=== PATIENT | female | born 1980 ===

== ENCOUNTER 2020-03-20 16:20 | Emergency (ER) | payer SELFPAY ==
[2020-03-20] MEDS ORDERED: MAGNESIUM SULFATE 2 GM/50 ML BAG IV ONE ×2 (16:34→20:34)
[2020-03-20] MEDS ORDERED: dexAMETHasone 20 MG/5 ML VIAL IV ONE (16:34)
[2020-03-20] MEDS ORDERED: SODIUM CHLORIDE 0.9% 1000 ML 1,000 ML IV ONE (16:34)
[2020-03-20] MEDS ORDERED: IPRATROPIUM 0.02% NEBU 2.5 ML IH ONE (16:34)
[2020-03-20] MEDS ORDERED: ALBUTEROL 2.5 MG/3 ML NEBU IH ONE (16:34)
--- NOTE | 2020-03-20 16:37 | Event Note ---
ED Screening Note Date of service: 03/20/20 Time: 16:36 ED Screening Note: 39-year-old -[place] female presents to the emergency room for shortness of breath and cough for the last 2 months but has gotten worse. Patient states that she has been trying to manage it at home with her nebulizer and inhaler but has no improvement. Patient denies any fever chills no nausea no vomiting but does report recent travel. Patient ports that she has had her tubes tied. This initial assessment/diagnostic orders/clinical plan/treatment(s) is/are subject to change based on patients health status, clinical progression and re- assessment by fellow clinical providers in the ED. Further treatment and workup at subsequent clinical providers discretion. Patient/guardian urged not to elope from the ED as their condition may be serious if not clinically assessed and managed. Initial orders include:
--- NOTE | 2020-03-20 16:47 | Emergency Department Report ---
ED Asthma HPI - General Chief Complaint: Adult Asthma Stated Complaint: SOB Time Seen by Provider: 03/20/20 16:41 Source: patient Mode of arrival: Ambulatory Limitations: No Limitations - History of Present Illness Initial Comments: Patient is 39 years old female with history of asthma. Patient presented to the ER complaining of shortness of breath, wheezing for the last few days. Patient stated that she has been using her albuterol inhaler but no improvement. Patient denied any fever, chills, runny nose or congestion. Patient also denied any chest pain. MD Complaint: "asthma attack", shortness of breath, wheezing -: days(s) Asthma History: childhood onset Severity: moderate Context: none known Treatments Prior to Arrival: inhaled bronchodilator - Related Data Current Asthma Therapy: inhaled bronchodilator Previous Rx's Medication Instructions Recorded Last Taken Type Azithromycin [Zithromax Z-JAMES] 250 mg PO DAILY 1 Days tab 03/20/20 Unknown Rx Prednisone [predniSONE 10 mg 10 mg PO .TAPER #1 tab.ds.pk 03/20/20 Unknown Rx (6-Day Pack, 21 Tabs)] Allergies Allergy/AdvReac Type Severity Reaction Status Date / Time Penicillins Allergy Rash Verified 03/20/20 16:22 ED Review of Systems ROS: Stated complaint: SOB Other details as noted in HPI Comment: All other systems reviewed and negative Constitutional: denies: chills, fever Respiratory: cough, shortness of breath, wheezing. denies: orthopnea, SOB with exertion, SOB at rest Cardiovascular: denies: chest pain, palpitations Gastrointestinal: denies: abdominal pain, nausea, vomiting Musculoskeletal: denies: back pain Neurological: denies: headache, weakness ED Past Medical Hx - Past Medical History Previous Medical History?: Yes Hx Asthma: Yes - Surgical History Past Surgical History?: Yes Additional Surgical History: x 3, Umbilical hernia repair - Social History Smoking Status: Never Smoker Substance Use Type: Alcohol - Medications Home Medications: Home Medications Medication Instructions Recorded Confirmed Last Taken Type Azithromycin [Zithromax Z-JAMES] 250 mg PO DAILY 1 Days tab 03/20/20 Unknown Rx Prednisone [predniSONE 10 mg 10 mg PO .TAPER #1 tab.ds.pk 03/20/20 Unknown Rx (6-Day Pack, 21 Tabs)] ED Physical Exam - General Limitations: No Limitations General appearance: alert, in no apparent distress - Head Head exam: Present: atraumatic, normocephalic, normal inspection - Eye Eye exam: Present: normal appearance - ENT ENT exam: Present: normal exam, normal orophraynx, mucous membranes moist - Neck Neck exam: Present: normal inspection, full ROM. Absent: tenderness, meningismus, lymphadenopathy, thyromegaly - Respiratory Respiratory exam: Present: wheezes, rales, prolonged expiratory. Absent: respiratory distress, rhonchi, accessory muscle use, decreased breath sounds - Cardiovascular Cardiovascular Exam: Present: regular rate, normal rhythm, normal heart sounds - GI/Abdominal GI/Abdominal exam: Present: soft, normal bowel sounds. Absent: distended, tenderness, guarding, rebound, rigid, mass, bruit, pulsatile mass, hernia - Extremities Exam Extremities exam: Present: normal inspection, full ROM, normal capillary refill. Absent: tenderness, pedal edema, calf tenderness - Back Exam Back exam: Present: normal inspection, full ROM. Absent: CVA tenderness (R), CVA tenderness (L) - Neurological Exam Neurological exam: Present: alert, oriented X3, CN II-XII intact, normal gait, reflexes normal - Psychiatric Psychiatric exam: Present: normal mood - Skin Skin exam: Present: warm, intact, normal color ED Course Vital Signs 03/20/20 16:25 Temperature 98.2 F Pulse Rate 98 H Respiratory 20 Rate Blood Pressure 143/87 O2 Sat by Pulse 95 Oximetry ED Medical Decision Making - Lab Data Result diagrams: 03/20/20 16:59 03/20/20 16:59 - Radiology Data Radiology results: report reviewed - Medical Decision Making Patient is 39 years old female with history of asthma. Patient presented to the ER complaining of shortness of breath, wheezing for the last few days. Patient stated that she has been using her albuterol inhaler but no improvement. Patient denied any fever, chills, runny nose or congestion. Patient also denied any chest pain. Patient received albuterol, Atrovent,'s Decadron and magnesium. Patient stated that she is feeling much better. Chest x-ray is negative for acute finding. Labs reviewed and is unremarkable. Patient given prescription for prednisone and Zithromax and advised to follow-up with her primary care physician in the next 2 to 3 days and to return to the ER if she develop any new symptoms. Critical care attestation.: If time is entered above; I have spent that time in minutes in the direct care of this critically ill patient, excluding procedure time. ED Disposition Clinical Impression: Asthmatic bronchitis Disposition: - TO HOME OR SELFCARE Is pt being admited?: No Condition: Stable Instructions: Asthma (ED), Acute Bronchitis (ED) Prescriptions: Prednisone [predniSONE 10 mg (6-Day Pack, 21 Tabs)] 10 mg PO .TAPER #1 tab.ds.pk Azithromycin [Zithromax Z-JAMES] 250 mg PO DAILY 1 Days tab Referrals: PRIMARY CARE,MD [Primary Care Provider] - 3-5 Days [facility] [Provider Group] - 3-5 Days Forms: Work/School Release Form(ED)
--- NOTE | 2020-03-20 17:00 | XRay Report ---
CHEST 2 VIEWS INDICATION / CLINICAL INFORMATION: Shortness of breath and cough. COMPARISON: None available. FINDINGS: SUPPORT DEVICES: None. HEART / MEDIASTINUM: The heart size and pulmonary vasculature are normal. LUNGS / PLEURA: No significant pulmonary or pleural abnormality. No pneumothorax. ADDITIONAL FINDINGS: No significant additional findings. IMPRESSION: No acute findings. Signer Name: Good Esposito MD Signed: 03/20/2020 4:56 PM Workstation Name: [id number]
[2020-03-20 17:20] LABS: Hematocrit 36.1 % (30.3-42.9); Hemoglobin 11.7 gm/dl (10.1-14.3); Mean Corpuscular HGB Conc 33 % (30-34); Mean Corpuscular Volume 82 fl (79-97); Platelet Count 364 K/mm3 (140-440)
[2020-03-20 17:38] LABS: BUN/Creatinine Ratio 15; Blood Urea Nitrogen 12 mg/dL (7-17); Calcium 9.2 mg/dL (8.4-10.2); Hemolysis Index 15
[2020-03-20 18:06] LABS: Anisocytosis Few; Basophils % (Manual) 0 % (0.0-1.8); Giant Platelets Rare; Large Platelets 1+; Platelet Estimate Consistent w Auto; Total Cells Counted 100
[2020-03-20] MEDS ORDERED: dexAMETHasone 4 MG/ML VIAL ONE ×2 (20:34→21:46)
[2020-03-20 21:52] VITALS: BP 124/64
== END 2020-03-20 22:27 | disposition home or self-care (01) ==
LOC: ED 16:20
DX: J44.9 Chronic obstructive pulmonary disease, unspecified (principal); Z88.0 Allergy status to penicillin
CPT/HCPCS: 36415; 71046; 80048; 85007; 85025; 96365; 96375; 99284; J1100; J3475

== ENCOUNTER 2021-02-05 11:26 | Emergency (ER) | payer SELFPAY ==
[2021-02-05] MEDS ORDERED: ALBUTEROL 2.5 MG/3 ML NEBU IH ONE (12:36)
[2021-02-05] MEDS ORDERED: IPRATROPIUM 0.02% NEBU 2.5 ML IH ONE (12:36)
--- NOTE | 2021-02-05 12:48 | Emergency Department Report ---
ED Asthma HPI - General Chief Complaint: Adult Asthma Stated Complaint: ASTHMA Time Seen by Provider: 02/05/21 12:32 Source: patient Mode of arrival: Ambulatory Limitations: No Limitations - History of Present Illness Initial Comments: 40-year-old -[place] female patient presents with complaints of asthma exacerbation starting this morning. She states her rescue inhaler and nebulizer are not helping. She denies any history of intubations due to her asthma. No chest pain, fever/chills/sweats, productive cough, or recent known sick contacts per patient. She states this does feel like her asthma and also reports a history of recurrent bronchitis. No history of smoking per patient. Blood pressure noted to be elevated, patient denies history of hypertension. - Related Data Previous Rx's Medication Instructions Recorded Last Taken Type Azithromycin [Zithromax Z-JAMES] 250 mg PO DAILY 1 Days tab 03/20/20 Unknown Rx Albuterol Mdi (or & Nicu Only) 1 puff IH Q4H PRN 30 Days #8.5 gram 02/05/21 Unknown Rx [ProAir HFA Inhaler] Albuterol Sulfate [Albuterol 0.63% 0.63 mg IH TID PRN #1 box 02/05/21 Unknown Rx NEBS] Prednisone [predniSONE 10 mg 10 mg PO .TAPER #1 tab.ds.pk 02/05/21 Unknown Rx (6-Day Pack, 21 Tabs)] Allergies Allergy/AdvReac Type Severity Reaction Status Date / Time Penicillins Allergy Rash Verified 03/20/20 16:22 ED Review of Systems ROS: Stated complaint: ASTHMA Other details as noted in HPI Constitutional: denies: chills, diaphoresis, fever, malaise, weakness ENT: denies: throat pain Respiratory: cough, shortness of breath, wheezing Cardiovascular: denies: chest pain Gastrointestinal: denies: abdominal pain, nausea, vomiting Skin: denies: change in color Hematological/Lymphatic: denies: swollen glands ED Past Medical Hx - Past Medical History Previous Medical History?: Yes Hx Asthma: Yes - Surgical History Past Surgical History?: Yes Additional Surgical History: x 3, Umbilical hernia repair - Social History Smoking Status: Former Smoker Substance Use Type: Alcohol, Prescribed - Medications Home Medications: Home Medications Medication Instructions Recorded Confirmed Last Taken Type Azithromycin [Zithromax Z-JAMES] 250 mg PO DAILY 1 Days tab 03/20/20 Unknown Rx Albuterol Mdi (or & Nicu Only) 1 puff IH Q4H PRN 30 Days #8.5 gram 02/05/21 Unknown Rx [ProAir HFA Inhaler] Albuterol Sulfate [Albuterol 0.63% 0.63 mg IH TID PRN #1 box 02/05/21 Unknown Rx NEBS] Prednisone [predniSONE 10 mg 10 mg PO .TAPER #1 tab.ds.pk 02/05/21 Unknown Rx (6-Day Pack, 21 Tabs)] ED Physical Exam - General Limitations: No Limitations General appearance: alert, in no apparent distress, obese - Head Head exam: Present: atraumatic, normocephalic - Eye Eye exam: Present: normal appearance - ENT ENT exam: Present: normal exam - Neck Neck exam: Present: normal inspection - Respiratory Respiratory exam: Present: wheezes (Diffuse), rhonchi (Diffuse). Absent: rales, chest wall tenderness - Cardiovascular Cardiovascular Exam: Present: regular rate, normal rhythm. Absent: systolic murmur, diastolic murmur, rubs, gallop - GI/Abdominal GI/Abdominal exam: Present: soft. Absent: tenderness - Neurological Exam Neurological exam: Present: normal gait - Psychiatric Psychiatric exam: Present: normal affect, normal mood - Skin Skin exam: Present: warm, dry, intact, normal color. Absent: rash, cyanosis, diaphoretic ED Course Vital Signs 02/05/21 02/05/21 12:01 13:06 Temperature 98.3 F Pulse Rate 78 Pulse Rate [ 76 Anterior Bilateral Throughout] Respiratory 28 H Rate Respiratory 26 H Rate [Anterior Bilateral Throughout] Blood Pressure 170/96 [Right] O2 Sat by Pulse 98 Oximetry ED Medical Decision Making - Medical Decision Making 40-year-old -[place] female patient presents with complaints of asthma exacerbation starting this morning. She states her rescue inhaler and nebulizer are not helping. She denies any history of intubations due to her asthma. No chest pain, fever/chills/sweats, productive cough, or recent known sick contacts per patient. She states this does feel like her asthma and also reports a history of recurrent bronchitis. No history of smoking per patient. Blood pressure noted to be elevated, patient denies history of hypertension. Patient given hour-long DuoNeb and Decadron. Upon recheck of her lungs, whee zing has significantly improved and rhonchi have resolved. Patient states she is no longer short of breath and is feeling well. Respiratory rate now 18 with a normal pulse ox and heart rate. Blood pressure improved, but remains elevated. Discussed need for follow-up with primary care for repeat blood pressure in 2 days and further assessment of possible hypertension. Patient is well-appearing and stable for discharge home. Strict return precautions were discussed in great detail with patient who verbalizes understanding. Critical care attestation.: If time is entered above; I have spent that time in minutes in the direct care of this critically ill patient, excluding procedure time. ED Disposition Clinical Impression: Asthma with acute exacerbation in adult, Elevated blood pressure reading Disposition: TO HOME OR SELFCARE Is pt being admited?: No Condition: Stable Instructions: Asthma, Adult, Hypertension, Adult Prescriptions: Albuterol Sulfate [Albuterol 0.63% NEBS] 0.63 mg IH TID PRN #1 box PRN Reason: Wheezing Prednisone [predniSONE 10 mg (6-Day Pack, 21 Tabs)] 10 mg PO .TAPER #1 tab.ds.pk Albuterol Mdi (or & Nicu Only) [ProAir HFA Inhaler] 1 puff IH Q4H PRN 30 Days #8 .5 gram PRN Reason: Wheezing Referrals: [facility] [Provider Group] - 2-3 Days (Blood pressure, asthma )
[2021-02-05 14:37] VITALS: BP 152/80
== END 2021-02-05 15:41 | disposition home or self-care (01) ==
LOC: ED 11:26
DX: J45.901 Unspecified asthma with (acute) exacerbation (principal); R03.0 Elevated blood-pressure reading, without diagnosis of hypertension; Z79.899 Other long term (current) drug therapy; Z88.0 Allergy status to penicillin; Z98.890 Other specified postprocedural states; Z87.891 Personal history of nicotine dependence
CPT/HCPCS: 94640; 94644; 99282

== ENCOUNTER 2021-04-11 15:38 | Emergency (ER) | payer SELFPAY ==
[2021-04-11 15:53] VITALS: BP 156/82
[2021-04-11] MEDS ORDERED: IBUPROFEN 800 MG TAB PO ONE (19:27)
[2021-04-11] MEDS ORDERED: TETANUS,DIPH,PERTUSS(ACELL) VACCINE 0.5 ML SYRINGE IM ONE (19:30)
--- NOTE | 2021-04-11 19:33 | Emergency Department Report ---
<KAREN SOLIZ - Last Filed: 04/11/21 19:29> ED Animal Bite HPI - General Chief Complaint: Animal Bite Stated Complaint: CAT BITE, RT HAND RING FINGER Time Seen by Provider: 04/11/21 17:10 Source: patient Mode of arrival: Ambulatory Limitations: No Limitations - History of Present Illness Initial Comments: 41-year-old female presents to the emergency room stating that her cat bit her right middle finger yesterday. Patient comes in today stating that the swelling pain. Past medical history of asthma meds albuterol. Not up-to-date on tetanus. MD Complaint: animal bite Onset/Timin -: days(s) Right: Hand (Middle finger swelling and redness) Animal: cat Animal Control Notified: No Description: household pet, immunizations UTD, appeared well Mechanism: bite Severity scale (0 -10): 8 Context: playing with animal Associated Symptoms: erythema. denies: discharge from wound, bleeding, fever - Related Data Patient Tetanus UTD: No Previous Rx's Medication Instructions Recorded Last Taken Type Azithromycin [Zithromax Z-JAMES] 250 mg PO DAILY 1 Days tab 03/20/20 Unknown Rx Albuterol Mdi (or & Nicu Only) 1 puff IH Q4H PRN 30 Days #8.5 gram 02/05/21 Unknown Rx [ProAir HFA Inhaler] Albuterol Sulfate [Albuterol 0.63% 0.63 mg IH TID PRN #1 box 02/05/21 Unknown Rx NEBS] Prednisone [predniSONE 10 mg 10 mg PO .TAPER #1 tab.ds.pk 02/05/21 Unknown Rx (6-Day Pack, 21 Tabs)] Doxycycline Hyclate [Doxycycline 100 mg PO Q12HR 10 Days #20 tab 04/11/21 Unknown Rx Hyclate TAB] Allergies Allergy/AdvReac Type Severity Reaction Status Date / Time Penicillins Allergy Rash Verified 04/11/21 15:53 ED Review of Systems Comment: All other systems reviewed and negative ED Past Medical Hx - Past Medical History Hx Asthma: Yes - Surgical History Additional Surgical History: x 3, Umbilical hernia repair - Social History Smoking Status: Former Smoker Substance Use Type: Alcohol, Prescribed - Medications Home Medications: Home Medications Medication Instructions Recorded Confirmed Last Taken Type Azithromycin [Zithromax Z-JAMES] 250 mg PO DAILY 1 Days tab 03/20/20 Unknown Rx Albuterol Mdi (or & Nicu Only) 1 puff IH Q4H PRN 30 Days #8.5 gram 02/05/21 Unknown Rx [ProAir HFA Inhaler] Albuterol Sulfate [Albuterol 0.63% 0.63 mg IH TID PRN #1 box 02/05/21 Unknown Rx NEBS] Prednisone [predniSONE 10 mg 10 mg PO .TAPER #1 tab.ds.pk 02/05/21 Unknown Rx (6-Day Pack, 21 Tabs)] Doxycycline Hyclate [Doxycycline 100 mg PO Q12HR 10 Days #20 tab 04/11/21 Unknown Rx Hyclate TAB] ED Physical Exam - General Limitations: No Limitations General appearance: alert, in no apparent distress - Head Head exam: Present: atraumatic, normocephalic - Eye Eye exam: Present: normal appearance - ENT ENT exam: Present: normal external ear exam - Neck Neck exam: Present: normal inspection, full ROM - Respiratory Respiratory exam: Present: accessory muscle use - Cardiovascular Cardiovascular Exam: Present: regular rate - Neurological Exam Neurological exam: Present: alert, oriented X3, normal gait - Psychiatric Psychiatric exam: Present: normal affect, normal mood - Expanded Skin Exam Expanded Distribution of rash: RUE (ProximalProximal middle finger Proximal middle finger Middle finger) Description of rash: Present: tenderness, erythematous, swelling ED Disposition Clinical Impression: Cat bite Disposition: DC-01 TO HOME OR SELFCARE Is pt being admited?: No Does the pt Need Aspirin: No Condition: Stable Instructions: Animal Bite, Adult, [id number] Additional Instructions: Complete antibiotics as prescribed. You can take Tylenol ibuprofen as needed for pain. Follow-up with your primary care provider. Return back to the emergency room if any worsening symptoms. Prescriptions: Doxycycline Hyclate [Doxycycline Hyclate TAB] 100 mg PO Q12HR 10 Days #20 tab Referrals: PRIMARY CAREMD [Primary Care Provider] - 3-5 Days Forms: Work/School Release Form(ED) <CHALINO MONTOYA - Last Filed: 04/12/21 01:14> ED Review of Systems ROS: Stated complaint: CAT BITE, RT HAND RING FINGER Other details as noted in HPI ED Course Vital Signs 04/11/21 04/11/21 15:52 20:15 Temperature 98.4 F Pulse Rate 100 H 83 Respiratory 18 16 Rate Blood Pressure 156/82 [Left] O2 Sat by Pulse 100 99 Oximetry - Reevaluation(s) Reevaluation #1: 04/12/21 01:13 Advised physician circulation assistant to add on either Flagyl, 500 mg every 8 hours for 7 days, clindamycin, 300 mg, every 8 hours for 7 days. The patient is to be contacted with these updated recommendations, physician assistants to call and will leave hardcopy prescriptions for this patient at this department. In addition, the patient will be counseled to avoid alcohol consumption, and to follow-up in 3 to 4 days for repeat checkup and evaluation. Critical care attestation.: If time is entered above; I have spent that time in minutes in the direct care of this critically ill patient, excluding procedure time. ED Disposition Is pt being admited?: No Does the pt Need Aspirin: No
--- NOTE | 2021-04-12 01:13 | Event Note ---
Date: 04/12/21 Made several attempts to call patient on her phone number [phone] which was unsuccessful. Called patient's emergency contact which she reports is her spouse chest phone Marty [phone] informed him that I was calling in a another medication of clindamycin to the pharmacy. He gave me the pharmacy of [facility] on [facility]. Patient was called in clindamycin 300 mg 3 times daily for 7 days to [facility] on [facility] phone number at [phone] left message on voicemail at 1:01 AM.
== END 2021-04-11 20:15 | disposition home or self-care (01) ==
LOC: ED 15:38
DX: S61.252A Open bite of right middle finger without damage to nail, initial encounter (principal); J45.909 Unspecified asthma, uncomplicated; Z98.890 Other specified postprocedural states; Z72.89 Other problems related to lifestyle; Z87.891 Personal history of nicotine dependence; Z79.899 Other long term (current) drug therapy; Z88.0 Allergy status to penicillin; W55.01XA Bitten by cat, initial encounter; Y93.89 Activity, other specified; Y92.89 Other specified places as the place of occurrence of the external cause; Y99.8 Other external cause status
CPT/HCPCS: 90471; 90715; 99282